=== PATIENT | male | born 1970 | race Two or more races ===

== ENCOUNTER 2019-05-01 09:11 | Outpatient (CLI) | payer OTHER | END 2019-05-01 09:17 | disposition home or self-care (01) | LOC: SONOGRAMA 09:11 | DX: N50.811 Right testicular pain (principal) ==

== ENCOUNTER 2021-09-17 10:21 | Outpatient (CLI) | payer OTHER | END 2021-09-17 10:26 | disposition home or self-care (01) | LOC: LAB 10:21 | DX: E03.8 Other specified hypothyroidism (principal); Z12.11 Encounter for screening for malignant neoplasm of colon; E11.9 Type 2 diabetes mellitus without complications; I10 Essential (primary) hypertension; E55.9 Vitamin D deficiency, unspecified; N40.0 Benign prostatic hyperplasia without lower urinary tract symptoms; E78.2 Mixed hyperlipidemia ==